=== PATIENT | female | born 1965 | race Caucasian/White ===

== ENCOUNTER 2016-12-24 15:51 | Emergency (ER) | payer BC ==
[~2016-12-24] VITALS: Ht 165.1 cm; Wt 77.2 kg
[2016-12-24 18:10] LABS: EOSINOPHIL (%) 0.4 % (0-5); HEMATOCRIT 40.9 % (36.0-46.0); IMMATURE GRANULOCYTE (%) 0.1 % (0.0-0.7); IMMATURE GRANULOCYTE COUNT 0.1 K/uL; MCH 30.1 PG (29.0-34.0); MCHC 34.7 G/DL (30.0-36.0); MCV 86.8 FL (83-99); MEAN PLAT.VOLUME 9.9 uM^3 (9.5-12.4); MONOCYTE (%) 6.1 % (3-12); MONOCYTE COUNT 0.5 K/uL (0-0.8); NEUTROPHIL (%) 53.7 % (45-76); NEUTROPHIL COUNT 4.1 K/uL (1.8-6.4); PLATELET COUNT 222 K/uL (156-360); RBC DIS.WIDTH-SD 40.3 % (39-53); RED BLOOD COUNT 4.71 M/uL (3.80-5.20); WHITE BLOOD COUNT 7.6 K/uL (4.1-10.2)
[2016-12-24 18:19] LABS: CHLORIDE 109 mEq/L (99-109); SODIUM 141 mEq/L (136-147)
[2016-12-24 18:20] LABS: GLUCOSE 92 mg/dL (70-99)
[2016-12-24 18:22] LABS: ANION GAP 12 MEQ/L (2-14); ERTH.SED.RATE 17 MM/HR (0-30)
[2016-12-24 18:24] LABS: GFR ESTIMATE (CALCULATED) > 59 mL/min/
[2016-12-24 18:25] LABS: UREA NITROGEN (BUN) 12 mg/dL (9-23)
[2016-12-24 18:54] LABS: URIC ACID 2.4 mg/dL (3.1-9.2)
[2016-12-24] MEDS ORDERED: SKELAXIN800 MG PO (19:10)
[2016-12-24 19:14] LABS: C-REACTIVE PROTEIN 1.6 MG/L (0-10)
[2016-12-24 19:24] VITALS: BP 119/85
== END 2016-12-24 19:25 | disposition home or self-care (01) ==
LOC: EME 15:51
PROVIDERS: Nurse Practitioner Family
DX: M25.551 Pain in right hip (principal); I10 Essential (primary) hypertension
CPT/HCPCS: 80048; 84550; 85025; 85651; 86140; 99281; 99283